=== PATIENT | female | born 1950 | race Caucasian/White ===

== ENCOUNTER 2018-06-05 12:50 | Emergency (ER) | payer MEDICARE ==
[~2018-06-05] VITALS: Ht 167.6 cm; Wt 99.8 kg
[2018-06-05] MEDS ORDERED: KETOROLAC TROMETHAMINE 30 MG INJ IM ONE (13:15)
[2018-06-05] MEDS ORDERED: KETOROLAC TROMETHAMINE 30 MG INJ ONE (13:16)
--- NOTE | 2018-06-05 13:44 | NUR ---
Patient discharged to home in stable conditon and steady gait. Written and verbal after care instructions given to patient. Patient verbalizes understanding of instructions.
== END 2018-06-05 13:47 | disposition home or self-care (01) ==
LOC: ER 12:50
DX: M25.511 Pain in right shoulder (principal); Z91.040 Latex allergy status
CPT/HCPCS: 29105; 73030; 73060; 96372; 99283; J1885; A4663